=== PATIENT | female | born 1965 | race Caucasian/White ===

== ENCOUNTER 2020-09-12 09:04 | Inpatient (IN) | payer BC, SELFPAY ==
[2020-09-12] VITALS (7 sets, daily range): BP systolic 104–138; BP diastolic 50–60; PULSE 84–114; RESP 16–22; TEMP 36.1–37.3; O2SAT 94–98; BMI 24.9
--- NOTE | ~2020-09-12 | XR_ITS ---
EXAMINATION: XR CHEST CLINICAL INFORMATION: Cough COMPARISON: None TECHNIQUE: 2 views of the chest were obtained. FINDINGS: The lungs are clear. There is no airspace consolidation or groundglass opacity. The costophrenic sulci are well-defined. The heart is normal in size. The hilar and mediastinal contours are normal. There is gentle levocurvature thoracolumbar spine which could be positional. XR/XR chest 2V IMPRESSION: Unremarkable examination.
--- NOTE | ~2020-09-12 | CT_ITS ---
EXAMINATION: CT ABDOMEN AND PELVIS WITHOUT CONTRAST CLINICAL INFORMATION: Abdominal symptoms. Assess for hydronephrosis. COMPARISON: Chest radiographs 09/12/2020 TECHNIQUE: Multidetector volumetric imaging was performed from the superior aspect of the liver through the pubic symphysis. Sagittal and coronal reformatted images were obtained on the technologist's workstation. No oral or intravenous contrast. This CT examination was performed using dose optimization techniques as appropriate, variously including the following: *Automated exposure control *Adjustment of mA and/or kV according to patient size (this includes techniques or standardized protocols for targeted exams where dose is matched to indication/reason for exam; i.e. extremities or head) *Use of iterative reconstruction technique DLP: 551 mGy-cm FINDINGS: LUNG BASES: The visualized lung bases are unremarkable. LIVER, GALLBLADDER, AND BILIARY TREE: The liver is normal in size and smooth in contour. Parenchymal areas homogeneous and within limits of normal. There is no focal parenchymal lesion or intrahepatic biliary ductal dilatation. The gallbladder is unremarkable with no evidence of radiopaque gallstones, gallbladder wall thickening, or obvious pericholecystic inflammatory changes. PANCREAS: Unremarkable. SPLEEN: Unremarkable. ADRENAL GLANDS: Unremarkable. KIDNEYS AND URETERS: There is mild scarring upper pole left kidney with mild focal parenchymal thinning and round parenchymal calcification under 3 mm. There is questionable periureteral stranding mid lumbar region and borderline thickening left Gerota's fascia but without hydronephrosis, hydroureter, or visible urinary tract calculi. The right kidney is normal. No parenchymal thinning or hydronephrosis or calculi. BLADDER: Unremarkable. GASTROINTESTINAL TRACT: There is no bowel obstruction or focal inflammatory changes in the bowel or mesentery. The appendix is mildly distended to 0.8 cm. No peripancreatic inflammatory changes. There is lipomatous infiltration of the ileocecal valve. No ascites or fluid collection. No pneumatosis or free air. ABDOMINAL WALL: Small fat-containing umbilical hernia under 3 cm. LYMPH NODES: No lymphadenopathy. VASCULAR: Unremarkable. PELVIC VISCERA: Unremarkable. OSSEOUS STRUCTURES: Unremarkable. CT/CT abdomen pelvis wo con IMPRESSION: 1. Mild scarring upper pole left kidney with small benign parenchymal calcification. Mild perinephric stranding versus old postinflammatory scarring. No hydronephrosis or hydroureter or visible obstructing calculi. Right urinary tract unremarkable. 2. Mild fullness appendix. No periappendiceal inflammatory changes. No bowel obstruction or ascites.
--- NOTE | 2020-09-12 10:07 | ED_ITS ---
HPI - Nausea/Vomiting/Diarrhea General Chief complaint: Nausea/Vomiting/Diarrhea Stated complaint: vomiting uti Time Seen by Provider: 09/12/20 10:04 Source: patient Mode of arrival: ambulatory Limitations: no limitations History of Present Illness HPI Narrative: THIS IS A 55 YEARS OLD THE FEMALE PRESENTED TO THE ED COMPLAINING OF FEVER, NAUSEA VOMITING OR INABILITY TO KEEP ANYTHING DOWN. SYMPTOMS STARTED ABOUT 4 DAYS AGO SHE VISITED URGENT CARE THE DAY BEFORE YESTERDAY AND THEN YESTERDAY SHE WENT TO ANOTHER EMERGENCY DEPARTMENT A SHE IS NOT BETTER. SHE WAS STARTED ON MACROBID AND ZOFRAN FOR UTI MD elicited complaint: nausea and vomiting Onset (ago): day(s) (4) Description of vomiting: watery Associated nausea: Yes Location of pain: none Quality: cramping Associated symptoms: denies other symptoms Related Data Home Medications Medication Instructions Recorded Confirmed atorvastatin 10 mg tablet 1 tab PO DAILY 09/12/20 09/12/20 methylphenidate HCl 54 mg 1 tab PO DAILY 09/12/20 09/12/20 tablet,extended release 24 hr nitrofurantoin 1 cap PO BID 09/12/20 09/12/20 monohydrate/macrocrystals 100 mg capsule ondansetron 4 mg disintegrating 1 tab PO Q8H PRN 09/12/20 09/12/20 tablet oxybutynin chloride 10 mg 1 tab PO DAILY 09/12/20 09/12/20 tablet,extended release 24 hr sertraline 50 mg tablet 1 tab PO DAILY 09/12/20 09/12/20 Allergies Allergy/AdvReac Type Severity Reaction Status Date / Time No Known Allergies Allergy Verified 09/12/20 10:09 Review of Systems Review of Systems: Yes all other systems are reviewed and are negative Constitutional: Constitutional: Reports fatigue ENT: Reports system reviewed and no additional complaints, except as documented Gastrointestinal: Gastrointestinal: Reports nausea Integumentary/Breasts: Skin/Breast: Reports system reviewed and no additional complaints, except as docu Endocrine: Endocrine: Reports fatigue PMFSH Past Medical History Attestation statement: The following information was validated with the patient. Source: unable to obtain Medical History ADHD High cholesterol Social History Social History Household Members: Spouse Housing: House Do you presently have visiting nurse or other home services: No Patient Tobacco Use Status: Former Tobacco user Tobacco use type: Cigarette Smoked in Last 30 Days: No e-Cigarette/Vaping Use: Former Use Use of substances other than those prescribed or required for medical reasons: No Have you been hit, kicked, punched, or otherwise hurt by someone within the past year? If so, by whom?: No Do you feel safe in your current relationship?: Yes Is there a partner from a previous relationship who is making you feel unsafe now?: No Are you made to feel afraid or neglected: No Yarsanism Healthcare Practices: roman catholic Advance Directives: No Advance Directives Information Provided: No Do you have thoughts of harming others: None Do you have a plan to hurt others: No Plan Recently lost weight without trying: No Eating poorly because of decreased appetite: No Nutrition Risks: No Nutritional Risk Patient : No : No Poor oral hygiene: No Physical Exam Vital Signs: Vital Signs: Last Vital Signs Temp 98.1 F 09/12/20 16:00 Pulse 89 09/12/20 16:00 Resp 22 H 09/12/20 16:00 BP 125/59 L 09/12/20 16:00 Pulse Ox 94 09/12/20 16:00 Body Mass Index 24.9 Const: General: cooperative HENMT: Other: HEAD EYES EARS NOSE AND THROAT EXAMINATION IS WITHIN NORMAL LIMIT Mouth: Normal oral and palatal mucosa present Neck: Other: NECK IS SUPPLE FULL RANGE OF MOTION Chest: Chest palpation & inspection: normal inspection of the chest Resp: Other: CLEAR LUNG MEDEIROS Cardio: Other: REGULAR RATE AND RHYTHM A NUMBER Jugular venous distension: no JVD GI: Other: ABDOMEN SOFT NO TENDERNESS MDM - Nausea/Vomiting/Diarrhea MDM Narrative Medical decision making narrative: This is the 3rd visit to a provider within 3 days she is not better she still unable to eat and drink despite the antiemetic he has an elevated white count will admit her for observation for IV hydration Lab Data Result diagrams: 09/12/20 10:38 09/12/20 10:38 Labs: Lab Results 09/12/20 09/12/20 09/12/20 Range/Units 10:38 10:38 10:38 WBC 14.0 H (4.8-10.8) X10*3/uL RBC 4.19 L (4.20-5.50) X10*6/uL Hgb 11.9 L (12.0-16.0) g/dl Hct 35.8 L (37-47) % MCV 85.4 (80-98) fL MCH 28.4 (27.0-33.0) pg MCHC 33.2 (31.0-35.0) g/dl RDW 13.3 (11.0-16.0) % Plt Count 150 L (160-400) X10*3/uL MPV 9.2 L (9.4-12.3) fL Immature Gran % (Auto) 0.4 (0.0-0.4) % Neut % (Auto) 84.5 H (45-73) % Lymph % (Auto) 5.3 L (20-40) % [place] % (Auto) 9.7 (2-11) % Eos % (Auto) 0.0 (0-4) % Baso % (Auto) 0.1 (0-2) % Lymph # (Auto) 0.7 L (1.2-4.9) X10*3/uL [place] # (Auto) 1.4 H (0.1-1.2) X10*3/uL Eos # (Auto) 0.0 (0.0-0.4) X10*3/uL Baso # (Auto) 0.0 (0.0-0.2) X10*3/uL Abs Immat Gran (auto) 0.05 H (0.00-0.03) X10*3/uL Absolute Neuts (auto) 11.8 H (2.0-8.3) X10*3/uL Absolute Nucleated RBC 0.000 (0.0-0.012) X10*3/uL Nucleated RBC % (auto) 0.0 (0.0-0.2) /100WBC Sodium 138 (135-145) mmol/L Potassium 3.5 (3.3-5.1) mmol/L Chloride 106 (96-108) mmol/L Carbon Dioxide 23 (22-29) mmol/L Anion Gap 13 (12-20) BUN 11 (9-16) mg/dL Creatinine 0.87 (0.5-1.4) mg/dL Estim Creat Clear Calc 67.3 Estimated GFR > 60 Random Glucose 138 H (60-115) mg/dL Lactic Acid 1.4 (0.5-2.0) mmol/L Calcium 8.4 (8.4-10.2) mg/dL Total Bilirubin 0.8 (0.0-1.0) mg/dL AST 24 (5-31) U/L ALT 26 (0-31) U/L Alkaline Phosphatase 79 (39-117) U/L C-Reactive Protein 22.31 H (< or = 0.50) mg/dL Total Protein 6.4 L (6.5-8.0) g/dL Albumin 3.8 (3.5-5.0) g/dL Urine Color Urine Appearance Urine pH (5.0-8.0) Ur Specific [place] (1.005-1.025) Urine Protein (NEG-TRACE) MG/DL Urine Glucose (UA) (NEG) MG/DL Urine Ketones (NEG) MG/DL Urine Blood (NEG) Urine Nitrite (NEG) Ur Leukocyte Esterase (NEG) Urine RBC (0) /HPF Urine WBC (0-4) /HPF Ur Squamous Epith Cells /LPF Urine Bacteria /LPF 09/12/20 Range/Units 10:39 WBC (4.8-10.8) X10*3/uL RBC (4.20-5.50) X10*6/uL Hgb (12.0-16.0) g/dl Hct (37-47) % MCV (80-98) fL MCH (27.0-33.0) pg MCHC (31.0-35.0) g/dl RDW (11.0-16.0) % Plt Count (160-400) X10*3/uL MPV (9.4-12.3) fL Immature Gran % (Auto) (0.0-0.4) % Neut % (Auto) (45-73) % Lymph % (Auto) (20-40) % [place] % (Auto) (2-11) % Eos % (Auto) (0-4) % Baso % (Auto) (0-2) % Lymph # (Auto) (1.2-4.9) X10*3/uL [place] # (Auto) (0.1-1.2) X10*3/uL Eos # (Auto) (0.0-0.4) X10*3/uL Baso # (Auto) (0.0-0.2) X10*3/uL Abs Immat Gran (auto) (0.00-0.03) X10*3/uL Absolute Neuts (auto) (2.0-8.3) X10*3/uL Absolute Nucleated RBC (0.0-0.012) X10*3/uL Nucleated RBC % (auto) (0.0-0.2) /100WBC Sodium (135-145) mmol/L Potassium (3.3-5.1) mmol/L Chloride (96-108) mmol/L Carbon Dioxide (22-29) mmol/L Anion Gap (12-20) BUN (9-16) mg/dL Creatinine (0.5-1.4) mg/dL Estim Creat Clear Calc Estimated GFR Random Glucose (60-115) mg/dL Lactic Acid (0.5-2.0) mmol/L Calcium (8.4-10.2) mg/dL Total Bilirubin (0.0-1.0) mg/dL AST (5-31) U/L ALT (0-31) U/L Alkaline Phosphatase (39-117) U/L C-Reactive Protein (< or = 0.50) mg/dL Total Protein (6.5-8.0) g/dL Albumin (3.5-5.0) g/dL Urine Color YELLOW Urine Appearance HAZY Urine pH 6.5 (5.0-8.0) Ur Specific [place] <= 1.005 (1.005-1.025) Urine Protein 1+ H (NEG-TRACE) MG/DL Urine Glucose (UA) NEG (NEG) MG/DL Urine Ketones NEG (NEG) MG/DL Urine Blood 2+ H (NEG) Urine Nitrite NEG (NEG) Ur Leukocyte Esterase 1+ H (NEG) Urine RBC 0-2 (0) /HPF Urine WBC 1-4 (0-4) /HPF Ur Squamous Epith Cells 2+ /LPF Urine Bacteria 1+ /LPF Discharge Plan Discharge Clinical Impression: Vomiting Patient Disposition: Admitted As Inpatient Interventions: Admission Worksheet (ED) Last Done: 09/12/20 15:39 Discharge Date/Time: 09/12/20 15:42
[2020-09-12 10:45] LABS: MANUAL DIFF FLAG NO
[2020-09-12] MEDS: 0.9 % Sodium Chloride 1,000 ML 999 ML IVCONT ×2 (10:45→13:41)
[2020-09-12 10:46] LABS: Basophils Percent Auto 0.1 % (0-2); Hematocrit 35.8 % (37-47); Hemoglobin 11.9 g/dl (12.0-16.0); Imm Gran Abs Auto 0.05 X10*3/uL (0.00-0.03); Imm Gran Pct Auto 0.4 % (0.0-0.4); Lymphocytes Absolute Auto 0.7 X10*3/uL (1.2-4.9); Lymphocytes Percent Auto 5.3 % (20-40); Mean Corpuscular HGB Conc 33.2 g/dl (31.0-35.0); Mean Corpuscular Hemoglobin 28.4 pg (27.0-33.0); Mean Corpuscular Volume 85.4 fL (80-98); Mean Platelet Volume 9.2 fL (9.4-12.3); Monocytes Absolute Auto 1.4 X10*3/uL (0.1-1.2); Monocytes Percent Auto 9.7 % (2-11); Neutrophils Absolute Auto 11.8 X10*3/uL (2.0-8.3); Neutrophils Percent Auto 84.5 % (45-73); Platelet Count 150 X10*3/uL (160-400); Red Blood Count 4.19 X10*6/uL (4.20-5.50); Red Cell Distribution Width 13.3 % (11.0-16.0)
[2020-09-12 10:47] LABS: Glucose Urine UA NEG (NEG); Leukocyte Esterase Urine 1+ (NEG); Nitrite Urine NEG (NEG); PH 6.5 (5.0-8.0); Specific Gravity - Urine <= 1.005 (1.005-1.025); UACC Culture Trigger YES; Urine Blood 2+ (NEG); Urine Ketones NEG (NEG); Urine Protein 1+ MG/DL (NEG-TRACE)
[2020-09-12 10:50] LABS: Appearance Urine HAZY; Color Urine YELLOW
[2020-09-12 10:54] LABS: Bacteria Urine 1+ /LPF; RBC Urine 0-2 /HPF (0); Squamous Epithelial Cell Urine 2+ /LPF; UACC CULT YES
[2020-09-12 11:07] LABS: Lactic Acid 1.4 mmol/L (0.5-2.0)
[2020-09-12 11:13] LABS: Alanine Aminotransferase 26 U/L (0-31); Albumin Level 3.8 g/dL (3.5-5.0); Alkaline Phosphatase 79 U/L (39-117); Anion Gap 13 (12-20); Aspartate Amino Transferase 24 U/L (5-31); Bilirubin Total 0.8 mg/dL (0.0-1.0); Blood Urea Nitrogen 11 mg/dL (9-16); C Reactive Protein 22.31 mg/dL (< or = 0.50); Calcium 8.4 mg/dL (8.4-10.2); Carbon Dioxide 23 mmol/L (22-29); Chloride 106 mmol/L (96-108); Creatinine Clr Calc Pharmacy 67.3; Estimated Glomerular Filt Rate > 60; Glucose Random 138 mg/dL (60-115); Potassium 3.5 mmol/L (3.3-5.1); Sodium 138 mmol/L (135-145); Total Protein 6.4 g/dL (6.5-8.0)
[2020-09-12] MEDS: Metoclopramide HCl 10 MG/2 ML VIAL IVPUSH (12:28)
--- NOTE | 2020-09-12 13:59 | P.HPHOSP_ITS ---
History of Present Illness Date of Service: 09/12/20 Chief Complaint: Intractable nausea and vomiting A 55 years old lady with PMH of HLD who presents to the hospital complaining of abdominal discomfort associated with nausea and vomiting for the last 4 days. She reports having urinary symptoms 5 days ago that she went to urgent care and started antibiotic but she could not tolerate antibiotics as she started v omiting and continue to do that for the last few days barely tolerating small sips of water. Reporting fever and chills with temperature up to 1 O2 at 1 point. Denies any chest pain, shortness of breath, cough, rash or headache. Admitted for further evaluation and treatment. Review of Systems Review of Systems: Reporting fever, chills and generalized weakness No chest pain, palpitation No shortness of breath or coughing No abdominal pain, but having frequent episodes of nausea or vomiting Increased frequency, dysuria No any rash or wounds PMFSH Medical History ADHD High cholesterol Social History Smoked in Last 30 Days: No Use of substances other than those prescribed or required for medical reasons: No Advance Directives: No Advance Directives Information Provided: No Meds Allergies Allergy/AdvReac Type Severity Reaction Status Date / Time No Known Allergies Allergy Verified 09/12/20 10:09 Active Medications: Current Medications Generic Name Dose Route Start Last Admin Trade Name Freq PRN Reason Stop Dose Admin Sodium Chloride 1,000 mls @ 999 mls/hr 09/12/20 13:00 09/12/20 13:41 Ns IVCONT 09/12/20 14:00 999 mls/hr .[id number] [facility] Administration Pharmacy Consult 1 each 09/12/20 13:55 Consult Rx Perform Med Rec MISCELLANE ONCE PRN Consult order Physical Exam Vital Signs and Narrative: Vital Signs: Last Vital Signs Temp 99.1 F 09/12/20 13:41 Pulse 114 H 09/12/20 13:41 Resp 20 09/12/20 13:41 BP 138/52 L 09/12/20 13:41 Pulse Ox 95 09/12/20 13:41 Body Mass Index 24.9 Const: Other: Constitutional : Alert, oriented, in mild distress from nausea and abdomen discomfort Neck : Normal inspection, Supple Cardiovascular : RRR, S1 S2, no lower extremity edema Respiratory : Fair bilateral air entry, no crackles, wheezes or rhonchi Gastrointestinal: soft, lax, Normal bowel sounds, Non tender Skin : Warm/Dry, No rash Neurological : Alert & oriented x3, No focal deficit Results Labs CBC and Chem 7: 09/12/20 10:38 09/12/20 10:38 Labs: Laboratory Results - last 24 hr 09/12/20 09/12/20 09/12/20 10:38 10:38 10:38 MCV 85.4 MCH 28.4 MCHC 33.2 RDW 13.3 Plt Count 150 L MPV 9.2 L Immature Gran % (Auto) 0.4 Neut % (Auto) 84.5 H Lymph % (Auto) 5.3 L [place] % (Auto) 9.7 Eos % (Auto) 0.0 Baso % (Auto) 0.1 Lymph # (Auto) 0.7 L [place] # (Auto) 1.4 H Eos # (Auto) 0.0 Baso # (Auto) 0.0 Abs Immat Gran (auto) 0.05 H Absolute Neuts (auto) 11.8 H Absolute Nucleated RBC 0.000 Nucleated RBC % (auto) 0.0 Anion Gap 13 Estim Creat Clear Calc 67.3 Estimated GFR > 60 Random Glucose 138 H Lactic Acid 1.4 Calcium 8.4 Total Bilirubin 0.8 AST 24 ALT 26 Alkaline Phosphatase 79 C-Reactive Protein 22.31 H Total Protein 6.4 L Albumin 3.8 Urine Color Urine Appearance Urine pH Ur Specific [place] Urine Protein Urine Glucose (UA) Urine Ketones Urine Blood Urine Nitrite Ur Leukocyte Esterase Urine RBC Urine WBC Ur Squamous Epith Cells Urine Bacteria 09/12/20 10:39 MCV MCH MCHC RDW Plt Count MPV Immature Gran % (Auto) Neut % (Auto) Lymph % (Auto) [place] % (Auto) Eos % (Auto) Baso % (Auto) Lymph # (Auto) [place] # (Auto) Eos # (Auto) Baso # (Auto) Abs Immat Gran (auto) Absolute Neuts (auto) Absolute Nucleated RBC Nucleated RBC % (auto) Anion Gap Estim Creat Clear Calc Estimated GFR Random Glucose Lactic Acid Calcium Total Bilirubin AST ALT Alkaline Phosphatase C-Reactive Protein Total Protein Albumin Urine Color YELLOW Urine Appearance HAZY Urine pH 6.5 Ur Specific [place] <= 1.005 Urine Protein 1+ H Urine Glucose (UA) NEG Urine Ketones NEG Urine Blood 2+ H Urine Nitrite NEG Ur Leukocyte Esterase 1+ H Urine RBC 0-2 Urine WBC 1-4 Ur Squamous Epith Cells 2+ Urine Bacteria 1+ Imaging Radiologist's Impressions: Impressions Chest X-Ray 09/12/20 10:12 IMPRESSION: Unremarkable examination. Abdomen/Pelvis CT 09/12/20 10:13 IMPRESSION: 1. Mild scarring upper pole left kidney with small benign parenchymal calcification. Mild perinephric stranding versus old postinflammatory scarring. No hydronephrosis or hydroureter or visible obstructing calculi. Right urinary tract unremarkable. 2. Mild fullness appendix. No periappendiceal inflammatory changes. No bowel obstruction or ascites. Assessment and Plan (1) Intractable nausea and vomiting: Status: Acute (2) UTI (urinary tract infection): Status: Acute (3) Sepsis: Status: Acute A 55 years old lady with PMH of HLD who presents to the hospital compla ining of abdominal discomfort associated with nausea and vomiting for the last 4 days. Sepsis Secondary to UTI Meet sepsis with UTI, tachycardia and leukocytosis Focused sepsis exam done Pending urine and blood cultures Start IV antibiotic of ceftriaxone Intractable nausea and vomiting CT scan negative for any acute findings No CVA tenderness Likely from UTI To use Zofran as needed, Reglan ATC Continue IV fluids DVT PPX Xarelto Quality Stroke Does the patient have a stroke diagnosis?: No VTE Prior VTE?: No VTE Risk Level:: Medical - moderate - high VTE Device Contraindication: N/A - Device Ordered VTE Drug Contraindication: N/A - Med Ordered
[2020-09-12] MEDS: Ketorolac Tromethamine 30 MG/ML VIAL IVPUSH ×2 (14:29→22:07)
[2020-09-12] MEDS: cefTRIAXone sodium 1 GM in 0.9 % Sodium Chloride 50 ML IV (14:29)
[2020-09-12] MEDS: Dextrose 5 % and 0.9 % NaCl 1,000 ML 100 ML IVCONT ×2 (15:54→23:30)
[2020-09-12] MEDS: 0.9 % Sodium Chloride Flush 3 ML SYRINGE IVFLUSH (15:54)
[2020-09-12] MEDS: Metoclopramide HCl 5 MG TABLET PO (19:48)
[2020-09-13] MEDS: Ketorolac Tromethamine 30 MG/ML VIAL IVPUSH ×2 (03:52→11:00)
[2020-09-13 04:00] VITALS: BP 114/51; PULSE 113; RESP 20; TEMP 36.9; O2SAT 96
[2020-09-13 07:01] LABS: MANUAL DIFF FLAG NO
[2020-09-13 07:25] LABS: Basophils Percent Auto 0.2 % (0-2); Eosinophils Percent Auto 0.1 % (0-4); Hematocrit 32.2 % (37-47); Hemoglobin 10.6 g/dl (12.0-16.0); Imm Gran Abs Auto 0.12 X10*3/uL (0.00-0.03); Imm Gran Pct Auto 0.8 % (0.0-0.4); Lymphocytes Absolute Auto 0.7 X10*3/uL (1.2-4.9); Lymphocytes Percent Auto 4.7 % (20-40); Mean Corpuscular HGB Conc 32.9 g/dl (31.0-35.0); Mean Corpuscular Hemoglobin 28.3 pg (27.0-33.0); Mean Corpuscular Volume 85.9 fL (80-98); Mean Platelet Volume 9.8 fL (9.4-12.3); Monocytes Absolute Auto 1.3 X10*3/uL (0.1-1.2); Monocytes Percent Auto 8.7 % (2-11); Neutrophils Absolute Auto 13.2 X10*3/uL (2.0-8.3); Neutrophils Percent Auto 85.5 % (45-73); Platelet Count 167 X10*3/uL (160-400); Red Blood Count 3.75 X10*6/uL (4.20-5.50); Red Cell Distribution Width 13.3 % (11.0-16.0); White Blood Count 15.4 X10*3/uL (4.8-10.8)
[2020-09-13 08:00] VITALS: BP 125/61; PULSE 97; RESP 16; TEMP 36.6; O2SAT 95
[2020-09-13] MEDS: Rivaroxaban 10 MG TABLET PO (08:54)
[2020-09-13] MEDS: 0.9 % Sodium Chloride Flush 3 ML SYRINGE IVFLUSH ×4 (08:55→22:48)
[2020-09-13] MEDS: Metoclopramide HCl 5 MG TABLET PO ×4 (09:08→19:36)
[2020-09-13] MEDS: guaiFENesin LA 600 MG TAB.ER.12H PO ×2 (11:00→19:37)
[2020-09-13] MEDS: Benzonatate 100 MG CAPSULE PO ×3 (11:00→19:38)
[2020-09-13 11:49] LABS: COVID-19 Test Negative (Negative)
--- NOTE | 2020-09-13 12:02 | HO.PM.IMPN ---
Subjective Subjective Date of Service: 09/13/20 Interval History: the patient was seen and evaluated this morning Laying in bed, still complaining of nausea and had episode of vomiting overnight Reporting coughing Denies any fever, chills or shortness of breath No reported other overnight events. Systemic review: No fever, chills or weakness No chest pain, palpitation Dyspnea on laying down but has cough No abdominal pain, still reporting nausea or vomiting No urinary symptoms No any rash or wounds Physical Exam Vital Signs: Vital Signs: Last Vital Signs Temp 97.8 F 09/13/20 08:00 Pulse 97 09/13/20 08:00 Resp 16 09/13/20 08:00 BP 125/61 09/13/20 08:00 Pulse Ox 95 09/13/20 08:00 Body Mass Index 24.9 Const: Other: Constitutional : Alert, oriented, in mild distress from nausea and coughing Neck : Normal inspection, Supple Cardiovascular : RRR, S1 S2, no lower extremity edema Respiratory : Fair bilateral air entry, no crackles, wheezes or rhonchi Gastrointestinal: soft, lax, Normal bowel sounds, Non tender Skin : Warm/Dry, No rash Neurological : Alert & oriented x3, No focal deficit Objective Data Current Medications Generic Name Dose Route Start Last Admin Trade Name Freq PRN Reason Stop Dose Admin Acetaminophen 650 mg 09/12/20 13:55 Acetaminophen 325 Mg Tablet PO Q6H PRN Pain, Mild (Pain Scale 1-3) Atorvastatin Calcium 10 mg 09/13/20 21:00 Atorvastatin Calcium 10 Mg Tablet PO BEDTIME SANGEETHA Benzonatate 100 mg 09/13/20 10:05 09/13/20 11:00 Benzonatate 100 Mg Capsule PO 100 mg TID SANGEETHA Administration Guaifenesin 600 mg 09/13/20 10:09/13/20 11:00 Guaifenesin [place] 600 Mg Tab.Er.12h PO 600 mg BID SANGEETHA Administration Ceftriaxone Sodium 1 gm/ 50 mls @ 100 mls/hr 09/12/20 14:00 09/12/20 15:47 Sodium Chloride IV Infused Q24H SANGEETHA Infusion Ketorolac Tromethamine 30 mg 09/12/20 14:00 09/13/20 11:00 Ketorolac Tromethamine 30 Mg/Ml Vial IVPUSH 09/17/20 13:59 30 mg Q6H PRN Administration Pain, Moderate (Pain Scale 4-6 Metoclopramide HCl 5 mg 09/12/20 16:30 09/13/20 11:00 Metoclopramide Hcl 5 Mg Tablet PO 5 mg QIDACHS SANGEETHA Administration Ondansetron HCl 4 mg 09/12/20 13:55 09/13/20 03:52 Ondansetron Hcl 4 Mg/2 Ml Vial IVPUSH 4 mg Q8H PRN Administration Nausea and Vomiting Oxybutynin Chloride 10 mg 09/13/20 09:00 09/13/20 08:54 Oxybutynin Chloride Er 5 Mg Tab.Er.24 PO 10 mg DAILY SANGEETHA Administration Pharmacy Consult 1 each 09/12/20 13:55 Consult Rx Perform Med Rec MISCELLANE ONCE PRN Consult order Rivaroxaban 10 mg 09/13/20 09:00 09/13/20 08:54 Rivaroxaban 10 Mg Tablet PO 10 mg DAILY SANGEETHA Administration Sertraline HCl 50 mg 09/13/20 21:00 Sertraline Hcl 50 Mg Tablet PO BEDTIME [facility] Sodium Chloride 3 ml 09/12/20 16:00 09/13/20 08:55 0.9 % Sodium Chloride Flush 3 Ml Syringe IVFLUSH 3 ml QSHIFT SANGEETHA Administration Zolpidem Tartrate 5 mg 09/13/20 21:00 Zolpidem Tartrate 5 Mg Tablet PO BEDTIME PRN Insomnia Labs CBC & Chem 7: 09/13/20 06:35 09/12/20 10:38 Labs: Laboratory Results - last 24 hr 09/13/20 09/13/20 06:35 11:30 MCV 85.9 MCH 28.3 MCHC 32.9 RDW 13.3 Plt Count 167 MPV 9.8 Immature Gran % (Auto) 0.8 H Neut % (Auto) 85.5 H Lymph % (Auto) 4.7 L [place] % (Auto) 8.7 Eos % (Auto) 0.1 Baso % (Auto) 0.2 Lymph # (Auto) 0.7 L [place] # (Auto) 1.3 H Eos # (Auto) 0.0 Baso # (Auto) 0.0 Abs Immat Gran (auto) 0.12 H Absolute Neuts (auto) 13.2 H Absolute Nucleated RBC 0.000 Nucleated RBC % (auto) 0.0 COVID-19 (TABITHA) Negative COVID-19 Clin Com See Note Microbiology Microbiology Results: Microbiology 09/12/20 10:44 Blood Culture - Preliminary Blood - Venous 09/12/20 00:00 Urine Culture - Final Urine clean catch - Urine finch top No growth. Assessment and Plan (1) UTI (urinary tract infection): Status: Acute (2) Intractable nausea and vomiting: Status: Acute (3) Cough: Status: Acute Assessment and Plan: A 55 years old lady with PMH of HLD who presents to the hospital complaining of abdominal discomfort associated with nausea and vomiting for the last 4 days. UTI Meet sepsis with UTI, tachycardia and leukocytosis Focused sepsis exam done Pending urine and blood cultures Continue ceftriaxone Intractable nausea and vomiting CT scan negative for any acute findings Likely from UTI To use Zofran as needed, Reglan ATC Cough Reported mainly when laying on her back and resolved upon standing Likely related to IV fluids Discontinue fluids Test for COVID Cough medication DVT PPX Xarelto Quality Stroke Does the patient have a stroke diagnosis?: No VTE Prior VTE?: No VTE Risk Level:: Medical - moderate - high VTE Device Contraindication: N/A - Device Ordered VTE Drug Contraindication: N/A - Med Ordered
--- NOTE | 2020-09-13 13:31 | MHC.CM.PN ---
NURSE SCREEN PRINTER NOTE ELECTRONIC MEDICAL RECORD REVIEWED ALONG WITH CASE DISCUSSED WITH STAFF NURSE , MET WITH PATIENT SHE WAS ADMITTED FOR ABDOMINAL PAIN , NAUSEA, EMESISI , SHE REPORTED THAT SHE LIVES WITH HER FAMILY, SHE IS EMPLOYED AND IS ACTIVE. INDEPRENDENT IN [facility] ADLS AND MOBILITY WITHOUT ANY DEVICES , LUCIE HAD HER SECOND COVID SHOT OF MODERNA MARCH OF 2020 DISCHARGE PLAN HOME WITH FAMILY NO SERVICES ANTICIPATED AT THIS TIME, PCP DR LEMONS LEFT PRACTICE AND NOW HAS NEW PCP IN [place] , AT THIS TIME SHE COULD NOT REMBER HIS MNAME . TRANSPORTATION FAMILY
[2020-09-13] MEDS: cefTRIAXone sodium 1 GM in 0.9 % Sodium Chloride 50 ML IV (14:46)
[2020-09-13 15:36] VITALS: BP 130/73; PULSE 108; RESP 18; TEMP 37.3; O2SAT 91
[2020-09-13 19:16] VITALS: BP 125/61; PULSE 103; RESP 16; TEMP 37.1; O2SAT 91
[2020-09-13] MEDS: Zolpidem Tartrate 5 MG TABLET PO (19:36)
[2020-09-13] MEDS: Atorvastatin Calcium 10 MG TABLET PO (19:36)
[2020-09-13] MEDS: Sertraline HCL 50 MG TABLET PO (19:37)
[2020-09-13 23:35] VITALS: BP 114/90; PULSE 113; RESP 20; TEMP 36.4; O2SAT 92
[2020-09-14] MEDS: Acetaminophen 325 MG TABLET 650 MG PO (04:42)
[2020-09-14 07:27] LABS: Hematocrit 28.7 % (37-47); Hemoglobin 9.6 g/dl (12.0-16.0); Mean Corpuscular HGB Conc 33.4 g/dl (31.0-35.0); Mean Corpuscular Hemoglobin 28.2 pg (27.0-33.0); Mean Corpuscular Volume 84.4 fL (80-98); Mean Platelet Volume 9.8 fL (9.4-12.3); Platelet Count 176 X10*3/uL (160-400); Red Cell Distribution Width 13.2 % (11.0-16.0); White Blood Count 12.9 X10*3/uL (4.8-10.8)
[2020-09-14 07:43] VITALS: BP 129/60; PULSE 92; RESP 17; TEMP 36.4; O2SAT 93
[2020-09-14 08:09] LABS: Anion Gap 14 (12-20); Blood Urea Nitrogen 7 mg/dL (9-16); Calcium 7.9 mg/dL (8.4-10.2); Carbon Dioxide 21 mmol/L (22-29); Chloride 106 mmol/L (96-108); Creatinine Clr Calc Pharmacy 83.7; Estimated Glomerular Filt Rate > 60; Glucose Random 97 mg/dL (60-115); Potassium 2.9 mmol/L (3.3-5.1); Sodium 138 mmol/L (135-145)
[2020-09-14] MEDS: 0.9 % Sodium Chloride Flush 3 ML SYRINGE IVFLUSH (08:52)
[2020-09-14] MEDS: Rivaroxaban 10 MG TABLET PO (08:53)
[2020-09-14] MEDS: guaiFENesin LA 600 MG TAB.ER.12H PO (08:53)
[2020-09-14] MEDS: Benzonatate 100 MG CAPSULE PO (08:53)
[2020-09-14] MEDS: Metoclopramide HCl 5 MG TABLET PO ×2 (08:53→11:30)
[2020-09-14] MEDS: Potassium Chloride ER 20 MEQ TAB.ER.PRT 40 MEQ PO (10:14)
[2020-09-14 12:00] VITALS: BP 138/63; PULSE 99; RESP 16; TEMP 36.4; O2SAT 94
--- NOTE | 2020-09-14 12:27 | PM.DS ---
DS: Providers Provider Date of Service: 09/14/20 Date of admission: 09/12/20 13:55 Primary care physician: Unknown Physician DS: Diagnosis Discharge Diagnosis (1) UTI (urinary tract infection): Status: Acute (2) Intractable nausea and vomiting: Status: Acute (3) Cough: Status: Acute (4) Sepsis: Status: Acute DS: Medications Discharge Medications Home Medications: Home Medications Medication Instructions Recorded Confirmed atorvastatin 10 mg tablet 1 tab PO DAILY 09/12/20 09/12/20 methylphenidate HCl 54 mg 1 tab PO DAILY 09/12/20 09/12/20 tablet,extended release 24 hr ondansetron 4 mg disintegrating 1 tab PO Q8H PRN 09/12/20 09/12/20 tablet oxybutynin chloride 10 mg 1 tab PO DAILY 09/12/20 09/12/20 tablet,extended release 24 hr sertraline 50 mg tablet 1 tab PO DAILY 09/12/20 09/12/20 Previous Rx's Medication Instructions Recorded benzonatate 100 mg capsule 100 mg PO TID 5 Days #15 cap 09/14/20 cefuroxime axetil 500 mg tablet 500 mg PO BID #10 tab 09/14/20 metoclopramide HCl 5 mg tablet 5 mg PO QIDACHS PRN #15 tab 09/14/20 DS: Summary Hospital Course Hospital Course: Admission note HPI A 55 years old lady with PMH of HLD who presents to the hospital complaining of abdominal discomfort associated with nausea and vomiting for the last 4 days.? She reports having urinary symptoms 5 days ago that she went to urgent care and started antibiotic but she could not tolerate antibiotics as she started vomiting and continue to do that for the last few days barely tolerating small sips of water.? Reporting fever and chills with temperature up to 1 O2 at 1 point.? Denies any chest pain, shortness of breath, cough, rash or headache. Admitted for further evaluation and treatment. Hospital course Patient was admitted to the hospital for treatment of sepsis secondary to UTI. Started on IV fluid and IV antibiotic with good response over the course of hospital stay as both urine and blood cultures remain negative. Her nausea was controlled by using Reglan and Zofran with advancing her diet slowly. To be discharged on Ceftin and to continue Reglan as needed for nausea. Time Spent with Patient Time attestation: Total time spent providing and/or coordinating discharge services: Discharge coordination time: Greater than 30 minutes Quality: Stroke Does the patient have a stroke diagnosis?: No Physical Exam Vital Signs: Vital Signs: Last Vital Signs Temp 97.6 F 09/14/20 07:43 Pulse 92 09/14/20 07:43 Resp 17 09/14/20 07:43 BP 129/60 09/14/20 07:43 Pulse Ox 93 09/14/20 07:43 Body Mass Index 24.9 Const: Other: Constitutional : Alert, oriented, in mild distress from nausea and coughing Neck : Normal inspection, Supple Cardiovascular : RRR, S1 S2, no lower extremity edema Respiratory : Fair bilateral air entry, no crackles, wheezes or rhonchi Gastrointestinal: soft, lax, Normal bowel sounds, Non tender Skin : Warm/Dry, No rash Neurological : Alert & oriented x3, No focal deficit DS: Data Data Completed and Pending Labs on day of discharge: Laboratory Results - last 24 hr 09/14/20 09/14/20 06:30 06:30 WBC 12.9 H RBC 3.40 L Hgb 9.6 L Hct 28.7 L MCV 84.4 MCH 28.2 MCHC 33.4 RDW 13.2 Plt Count 176 MPV 9.8 Absolute Nucleated RBC 0.000 Nucleated RBC % (auto) 0.0 Sodium 138 Potassium 2.9 L Chloride 106 Carbon Dioxide 21 L Anion Gap 14 BUN 7 L Creatinine 0.70 Estim Creat Clear Calc 83.7 Estimated GFR > 60 Random Glucose 97 Calcium 7.9 L Preliminary micro results at discharge 09/12/20 10:44 Blood Culture - Preliminary Blood - Venous No growth after 48 hours. 09/12/20 10:38 Blood Culture - Preliminary Blood - Venous No growth after 24 hours. Discharge Plan Discharge Patient Disposition: Home, Self-Care Discharge Diagnosis: Urinary tract infection Nausea and vomiting Referrals: Physician,Unknown [Primary Care Provider] - 1 Week Discharge Medications: New metoclopramide HCl 5 mg Tablet 5 mg PO QIDACHS PRN (Reason: Nausea And Vomiting) Qty: 15 RF: 0 benzonatate 100 mg Capsule 100 mg PO TID 5 Days Qty: 15 RF: 0 cefuroxime axetil 500 mg tablet 500 mg PO BID Qty: 10 RF: 0 Continued atorvastatin 10 mg tablet 1 tab PO DAILY RF: 0 oxybutynin chloride 10 mg tablet extended release 24hr 1 tab PO DAILY RF: 0 methylphenidate HCl 54 mg tablet extended release 24hr 1 tab PO DAILY RF: 0 ondansetron 4 mg tablet,disintegrating 1 tab PO Q8H PRN (Reason: Nausea) RF: 0 sertraline 50 mg tablet 1 tab PO DAILY RF: 0 Discontinued nitrofurantoin monohyd/m-cryst 100 mg capsule 1 cap PO BID RF: 0 Discharge Orders: Discharge Order (Routine); Ordered 09/14/20 Ordered By: Mikal Perez Diet: advance to usual diet Activity on Discharge: As tolerated Stand Alone Forms: Patient Portal Discharge page Care Plan Goals: Read below Health Concerns: Read below Plan of Treatment: You were admitted to the hospital for treatment of urinary tract infection associated with nausea and vomiting. Your responded well to IV fluid, IV antibiotics and nausea medication over the course of hospital stay. Assessment: Continue Ceftin for 5 more days Use Reglan as needed for nausea Use Tessalon Perles as needed for cough Advance your diet slowly at home
== END 2020-09-14 13:04 | disposition home or self-care (01) | DRG 720 ==
LOC: HO.ED 12:46 → HO.EDOVER 14:25 → HO.S3 14:43
PROVIDERS: Admitting Provider Student in an Organized Health Care Education/Training Program; Emergency Provider Emergency Medicine; Visit Provider Student in an Organized Health Care Education/Training Program
DX: A41.9 Sepsis, unspecified organism (principal); N39.0 Urinary tract infection, site not specified; F90.9 Attention-deficit hyperactivity disorder, unspecified type; E78.5 Hyperlipidemia, unspecified; Z20.822 Contact with and (suspected) exposure to COVID-19; Z87.891 Personal history of nicotine dependence; Z79.899 Other long term (current) drug therapy
CPT/HCPCS: 36415; 71046; 74176; 80048; 80053; 81001; 83605; 85025; 85027; 86140; 87040; 87086; 87635; 99285; J0696; J1885; J2405; J2765